=== PATIENT | male | born 1950 | race Caucasian/White ===

== ENCOUNTER 2024-01-13 12:34 | Outpatient (CLI) | payer OTHER, SELFPAY | END 2024-01-13 12:35 | disposition home or self-care (01) | LOC: RAD 12:36 | PROVIDERS: PCP Chiropractor; Visit Provider Chiropractor | DX: I25.9 Chronic ischemic heart disease, unspecified (principal); I51.7 Cardiomegaly | CPT/HCPCS: 93306 ==